=== PATIENT | male | born 1955 | race African-American/Black ===

== ENCOUNTER 2016-08-30 14:23 | Emergency (ER) | payer OTHER ==
--- NOTE | 2016-08-30 14:47 | ER Document Report ---
ED Medical Screen (RME) - General Stated Complaint: RIGHT KNEE PAIN, SWELLING Notes: 61 yo male with hx/o gout c/o right knee pain x 6 days. + redness, swelling, warmth. no relief with colchicine. no trauma. TRAVEL OUTSIDE OF THE [place] IN LAST 30 DAYS: No Physical Exam - Vital signs Vitals: Temp Pulse Resp BP Pulse Ox 98.5 F 85 16 165/66 H 98 08/30/16 14:31 08/30/16 14:31 08/30/16 14:31 08/30/16 14:31 08/30/16 14:31 Course - Vital Signs Vital signs: Temp Pulse Resp BP Pulse Ox 98.5 F 85 16 165/66 H 98 08/30/16 14:31 08/30/16 14:31 08/30/16 14:31 08/30/16 14:31 08/30/16 14:31
--- NOTE | 2016-08-30 16:09 | ER Document Report ---
HPI - HPI Patient complains to provider of: chronic right knee effusion, gout Onset: Other Onset/Duration: Persistent, Waxing and waning Pain Level: 4 Context: 61-year-old male with a history of chronic knee effusions and gout comes in today because his [id number] with the same thing has gotten steroid injections in his knee. No fever or myalgia's. 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 Associated Symptoms: None Exacerbated by: Other - kneeling Similar symptoms previously: Yes Recently seen / treated by doctor: No - ROS ROS below otherwise negative: Yes Systems Reviewed and Negative: Yes All other systems reviewed and negative - DERM Skin Color: Normal Past Medical History - General Information source: Patient - Social History Smoking Status: Current Every Day Smoker Chew tobacco use (# tins/day): Yes Frequency of alcohol use: None Drug Abuse: None Lives with: Spouse/Significant other Family History: Reviewed & Not Pertinent Patient has suicidal ideation: No Patient has homicidal ideation: No - Medical History Medical History: Negative Renal/ Medical History: Denies: Hx Peritoneal Dialysis Surgical Hx: Negative Vertical Provider Document - CONSTITUTIONAL Agree With Documented VS: Yes Exam Limitations: No Limitations - INFECTION CONTROL TRAVEL OUTSIDE OF THE [place] IN LAST 30 DAYS: No - HEENT HEENT: Normal ENT Exam, Normocephalic - NECK Neck: Supple - RESPIRATORY Respiratory: Breath Sounds Normal, No Respiratory Distress O2 Sat by Pulse Oximetry: 98 - CARDIOVASCULAR Cardiovascular: Regular Rate, Regular Rhythm - BACK Back: Normal Inspection - MUSCULOSKELETAL/EXTREMETIES Musculoskeletal/Extremeties: YUDELKA, FROM. negative: Tender Notes: warm but not red right knee effusion - NEURO Level of Consciousness: Awake, Alert Motor/Sensory: No Motor Deficit, No Sensory Deficit - DERM Integumentary: Warm, Dry Course - Vital Signs Vital signs: Temp Pulse Resp BP Pulse Ox 98.5 F 85 16 165/66 H 98 08/30/16 14:31 08/30/16 14:31 08/30/16 14:31 08/30/16 14:31 08/30/16 14:31 Discharge - Discharge Clinical Impression: chronic right knee effusion Condition: Stable Disposition: HOME, SELF-CARE Instructions: Use of Crutches ([facility]), Knee Effusion ([facility]), Arthritis ([facility]) Additional Instructions: see the orthopedic doctor for follow up take the prednisone instead of the colchicine to er if worse elevate Prescriptions: Hydrocodone Bit/Acetaminophen [Hydrocodon-Acetaminophen 5-325] 1 each PO Q4HP PRN #15 tablet PRN Reason: Prednisone [Deltasone 10 mg Tablet] 10 mg PO ASDIR PRN #21 tablet PRN Reason: Forms: Return to Work Referrals: MAEGAN PRADHAN MD [Primary Care Provider] - Follow up as needed DAVE BERRIOS MD [ACTIVE STAFF] - Follow up as needed
[2016-08-30 16:29] VITALS: BP 164/75
== END 2016-08-30 16:29 | disposition home or self-care (01) ==
LOC: ER 14:23
DX: M25.461 Effusion, right knee (principal); M10.9 Gout, unspecified; F17.210 Nicotine dependence, cigarettes, uncomplicated
CPT/HCPCS: 99283

== ENCOUNTER 2018-02-02 18:47 | Inpatient (IN) | payer SELFPAY ==
--- NOTE | 2018-02-02 19:14 | RADIOLOGY REPORT (SQ) ---
EXAM DESCRIPTION: CT HEAD WITHOUT COMPLETED DATE/TIME: 02/02/2018 7:00 pm REASON FOR STUDY: stroke symptoms COMPARISON: None. TECHNIQUE: Axial images acquired through the brain without intravenous contrast. Images reviewed wi th bone, brain and subdural windows. Images stored on PACS. All CT scanners at this facility use dose modulation, iterative reconstruction, and/or weight based d osing when appropriate to reduce radiation dose to as low as reasonably achievable (ALARA). [facility]: Dose Right [facility]: CareDose [facility]: Dose Right [facility]: Teradose 4D [facility]: Smart Moodsnap RADIATION DOSE: CT Rad equipment meets quality standard of care and radiation dose reduction techniq ues were employed. CTDIvol: 53.2 mGy. DLP: 991 mGy-cm. mGy. LIMITATIONS: None. FINDINGS: VENTRICLES: Normal size and contour. CEREBRUM: No mass effect. No hemorrhage. No midline shift. Normal hannon/white matter differentiatio n. No evidence for acute territorial infarction. CEREBELLUM: No mass effect. No hemorrhage. No alteration of density. No evidence for acute infarct ion. EXTRAAXIAL SPACES: No fluid collections. ORBITS AND GLOBE: Symmetrical contour of the globes. CALVARIUM: No depressed skull fracture. PARANASAL SINUSES: No air-fluid level. SOFT TISSUES: No hematoma. IMPRESSION: No acute intracranial hemorrhage or acute territorial infarct. EVIDENCE OF ACUTE STROKE: NO. COMMENT: Pertinent findings on the imaging study reported as a CRITICAL RESULT to Dr. Jackson at1 9:07 hrs on 02/02/2018. Category of Critical Result: Code Stroke Quality ID # [id number]: Final reports with documentation of one or more dose reduction techniques (e.g., Au tomated exposure control, adjustment of the mA and/or kV according to patient size, use of iterative reconstruction technique) TECHNICAL DOCUMENTATION: JOB ID: [id number] 2010 [employer]- All Rights Reserved Reading location - IP/workstation name: [email or web address]
[2018-02-02] MEDS ORDERED: ACETAMINOPHEN 325 MG TABLET PO ONE (19:18)
[2018-02-02] MEDS ORDERED: ACETAMINOPHEN 325 MG TABLET ONE (19:24)
[2018-02-02 19:27] LABS: HEMATOCRIT 40.2 % (37.9-51.0); HEMOGLOBIN 13.6 g/dL (13.5-17.0); MEAN CORPUSCULAR HEMOGLOBIN 29.7 pg (27.0-33.4); MEAN CORPUSCULAR HGB CONC 33.7 g/dL (32.0-36.0); MEAN CORPUSCULAR VOLUME 88 fl (80-97); PLATELET COUNT 284 10^3/uL (150-450); RED BLOOD COUNT 4.57 10^6/uL (4.35-5.55); WHITE BLOOD COUNT 8.9 10^3/uL (4.0-10.5)
--- NOTE | 2018-02-02 19:28 | RADIOLOGY REPORT (SQ) ---
EXAM DESCRIPTION: CHEST SINGLE VIEW COMPLETED DATE/TIME: 02/02/2018 7:13 pm REASON FOR STUDY: STROKE ALERT COMPARISON: None. EXAM PARAMETERS: NUMBER OF VIEWS: One view. TECHNIQUE: Single frontal radiographic view of the chest acquired. RADIATION DOSE: NA LIMITATIONS: None. FINDINGS: LUNGS AND PLEURA: No consolidation, pneumothorax or pleural effusion. MEDIASTINUM AND HILAR STRUCTURES: No masses. Contour normal. HEART AND VASCULAR STRUCTURES: Heart normal in size. Normal vasculature. BONES: No acute findings. HARDWARE: None in the chest. IMPRESSION: No acute radiographic finding in the chest. TECHNICAL DOCUMENTATION: JOB ID: [id number] 2010 [employer]- All Rights Reserved Reading location - IP/workstation name: [email or web address]
[2018-02-02 19:32] LABS: INTERNATIONAL RATION (INR) 0.86; PROTHROMBIN TIME 12.2 SEC (11.4-15.4)
[2018-02-02 19:46] LABS: ALANINE AMINOTRANSFERASE 208 U/L (21-72); ALBUMIN 4.1 g/dL (3.5-5.0); ALKALINE PHOSPHATASE 109 U/L (38-126); ANION GAP 13 (5-19); ASPARTATE AMINO TRANSFERASE 374 U/L (17-59); BILIRUBIN,DIRECT 0.5 mg/dL (0.0-0.4); BILIRUBIN,TOTAL 1.2 mg/dL (0.2-1.3); BLOOD UREA NITROGEN 15 mg/dL (7-20); CALCIUM 9.5 mg/dL (8.4-10.2); CARBON DIOXIDE 28 mmol/L (22-30); CHLORIDE 102 mmol/L (98-107); CREATINE KINASE 201 U/L (55-170); GLUCOSE 129 mg/dL (75-110); SODIUM 142.5 mmol/L (137-145); TOTAL PROTEIN 7.7 g/dL (6.3-8.2)
[2018-02-02 19:51] LABS: ABSOLUTE LYMPHOCYTES# (MANUAL) 0.6 10^3/uL (0.5-4.7); ABSOLUTE MONOCYTES # (MANUAL) 0.3 10^3/uL (0.1-1.4); BASOPHILS % (MANUAL) 0 % (0-2); EOSINOPHILS % (MANUAL) 0 % (0-6); LYMPHOCYTES % (MANUAL) 7 % (13-45); MONOCYTES % (MANUAL) 3 % (3-13); SEGMENTED NEUTROPHILS % (MAN) 75 % (42-78); TOTAL CELLS COUNTED 100
[2018-02-02 19:53] LABS: ANISOCYTOSIS SLIGHT; STOMATOCYTES 1+
[2018-02-02 19:54] LABS: PLATELET COMMENT ADEQUATE
[2018-02-02 19:57] LABS: CREATINE KINASE MB 0.8 ng/mL (<4.55); TROPONIN I 0.013 ng/mL
[2018-02-02 20:06] LABS: BAND NEUTROPHILS % (MANUAL) 15 % (3-5)
--- NOTE | 2018-02-02 20:31 | ER Document Report ---
ED General - General Chief Complaint: S/S of Possible Stroke Stated Complaint: STROKE LIKE SYMPTOMS Time Seen by Provider: 02/02/18 20:07 Cannot obtain history due to: Altered mental status Notes: Patient is a 62-year-old male with a past medical history of hypertension who presents with complaints of difficulty speaking. The patient himself struggles to provide meaningful history stating only that he was at home today repeatedly over and over again. His does show up later and state that the patient apparently was fishing today and when he got home she notes that he is speaking abnormally prompting her to call the ambulance to bring to the hospital. No additional history can be obtained. The patient was unaware that he had a fever today. TRAVEL OUTSIDE OF THE [place] IN LAST 30 DAYS: No - Related Data Allergies/Adverse Reactions: No Known Allergies Allergy (Verified 02/02/18 18:52) Past Medical History - General Information source: Patient, Relative - Social History Smoking Status: Never Smoker Frequency of alcohol use: None Drug Abuse: None Lives with: Family Family History: Reviewed & Not Pertinent Renal/ Medical History: Denies: Hx Peritoneal Dialysis Review of Systems - Review of Systems -: Yes ROS unobtainable due to patient's medical condition Physical Exam - Vital signs Vitals: Resp Pulse Ox 20 97 02/02/18 19:22 02/02/18 19:22 Interpretation: Tachycardic, Tachypneic, Febrile Notes: PHYSICAL EXAMINATION: GENERAL: Appears mildly unwell but in no acute distress HEAD: Atraumatic, normocephalic. EYES: Pupils equal round and reactive to light, extraocular movements intact, sclera anicteric, conjunctiva are normal. ENT: nares patent, oropharynx clear without exudates. Moderately dry mucous membranes. NECK: Normal range of motion, supple without lymphadenopathy LUNGS: Breath sounds clear to auscultation bilaterally and equal. No wheezes rales or rhonchi. HEART: Regular tachycardia without murmurs ABDOMEN: Soft, nontender, normoactive bowel sounds. No guarding, no rebound. No masses appreciated. EXTREMITIES: Normal range of motion, no pitting or edema. No cyanosis. NEUROLOGICAL: Face symmetric. Tongue protrudes midline. Extraocular motions intact. Pupils are 2 mm and equally reactive. Expressive aphasia, no receptive aphasia. No dysarthria. Normal gait. 5 out of 5 strength in both the distal and proximal upper and lower extremities bilaterally. Sensation is grossly intact throughout. Finger to nose testing normal. Pronator drift normal. PSYCH: Alert, oriented to person, not oriented to year, month or location SKIN: Warm, Dry, normal turgor, no rashes or lesions noted. Course - Re-evaluation Re-evalutation: 02/02/18 20:29 Patient presents with word finding difficulties and is profoundly confused. He does not have a dysarthria. His neurologic exam does not show any focal neurologic deficits. However he is unable to me the month, the year, or where we are. He seems to get frustrated with this word finding difficulty. Concerning for an expressive aphasia although a very atypical presentation as the patient also meet sepsis criteria at time of arrival he has a temperature of 101F reconfirmed on 2 separate readings, is tachycardic, and has a 15% bandemia. No obvious source of infection but would be a very atypical presentation for the patient to be both acutely infected and be developing an acute stroke. The patient is unable to tell me his last known time of well and there is no family members at the bedside. The triage nursing note seems to indicate that 3 PM was his last known well but the patient cannot confirm this to me. He can also not tell me what medications he is on and there are no medication list available. I do not believe proceeding with TPA at this time point would be appropriate given the picture is quite confusing does not appear entirely consistent with an acute CVA given the absence of any additional neurologic deficits and the patient's picture of fever, tachycardia, and bandemia. 02/02/18 20:37 Family is not the bedside, clarifies that the last known known well time was 7 AM. Apparently he was fishing all day and when he came home his noticed that his speech pattern was off and the people with whom he had been fishing stated that he had been speaking irregularly all day. Will begin empiric cefepime, IV fluids, awaiting urinalysis and several additional labs including lactate, venous blood gas. MRI of the head has been ordered. 02/02/18 22:32 Lumbar puncture attempted by both myself and Dr. Spivey a total of 3 times per each provider unsuccessful. Empiric coverage has already been started. Will obtain right upper quadrant ultrasound given LFT of normality's and then plan for hospitalization. 02/03/18 0100 Patient continues to be hemodynamically within acceptable limits. He has defervesced. He remains with a moderate expressive aphasia but continues to deny any additional complaints. I discussed this case with the accepting hospitalist who has agreed to admit the patient. - Vital Signs Vital signs: Temp Pulse Resp BP Pulse Ox 99.3 F 73 18 113/75 100 02/03/18 00:23 02/03/18 03:00 02/03/18 03:00 02/03/18 03:00 02/03/18 03:00 - Laboratory Result Diagrams: 02/03/18 03:06 02/03/18 03:06 Laboratory results interpreted by me: 02/02/18 02/02/18 02/02/18 19:13 19:13 20:21 RDW 15.0 H Band Neutrophils % 15 H Lymphocytes % (Manual) 7 L Glucose 129 H Direct Bilirubin 0.5 H AST 374 H ALT 208 H Ammonia Creatine Kinase 201 H Urine Protein 100 H Urine Urobilinogen 4.0 H 02/02/18 20:45 RDW Band Neutrophils % Lymphocytes % (Manual) Glucose Direct Bilirubin AST ALT Ammonia < 8.7 L Creatine Kinase Urine Protein Urine Urobilinogen - Diagnostic Test Radiology reviewed: Image reviewed, Reports reviewed Radiology results interpreted by me: 02/02/18 20:31 CT head: No acute intercranial bleed or mass Chest x-ray: No acute infiltrate or pneumothorax - EKG Interpretation by Me Additional EKG results interpreted by me: 02/03/18 00:02 Sinus tachycardia. Rate 103. No ST elevations or depressions. QTC is 471. Procedures - Lumbar Puncture Lumbar puncture Consent obtained: Yes Lumbar puncture pre-procedure: Sterile PPE donned, Betadine prep applied Patient position: Sitting Needle size: 22 Lumbar puncture location: L4-5 Anesthetic type: 1% Lidocaine mL's of anesthetic: 5 Amount/type of drainage: 0 Number of attempts: 6 Complications: No Notes: 02/03/18 00:01 Unable to obtain cerebral spinal fluid sample Critical Care Note - Critical Care Note Total time excluding time spent on procedures (mins): 38 Comments: Critical care time spent obtaining history from patient or surrogate, discussions with consultants, development of treatment plan with patient or surrogate, evaluation of patient's response to treatment, examination of patient , ordering and performing treatments and interventions, ordering and review of laboratory studies, re-evaluation of patient's condition, ordering and review of radiographic studies and review of old charts Discharge - Discharge Clinical Impression: Expressive aphasia Sepsis Qualifiers: Sepsis type: sepsis due to unspecified organism Qualified Code(s): A41.9 - Sepsis, unspecified organism Altered mental status Qualifiers: Altered mental status type: unspecified Qualified Code(s): R41.82 - Altered mental status, unspecified Condition: Fair Disposition: ADMITTED INPATIENT Admitting Provider: Hospitalist Unit Admitted: Telemetry
[2018-02-02] MEDS ORDERED: NORMAL SALINE 1000 ML 1,000 ML IV ONE (20:32)
[2018-02-02] MEDS ORDERED: CEFEPIME 2 GM/D5W RTU 2 GM/50 ML RTUPB IV ONE (20:32)
[2018-02-02 20:34] LABS: VENOUS BLOOD BASE EXCESS 4.7 mmol/L; VENOUS BLOOD HCO3 30.4 mmol/L (20-32); VENOUS BLOOD PCO2 48.8 mmHg (35-63); VENOUS BLOOD PH 7.41 (7.30-7.42)
[2018-02-02 21:00] LABS: APPEARANCE,URINE CLEAR; BILIRUBIN,URINE NEGATIVE (NEGATIVE); COLOR,URINE YELLOW; GLUCOSE, URINE NEGATIVE (NEGATIVE); KETONES,URINE NEGATIVE (NEGATIVE); LEUKOCYTE ESTERASE,URINE NEGATIVE (NEGATIVE); NITRITE,URINE NEGATIVE (NEGATIVE); PROTEIN,URINE 100 mg/dL (NEGATIVE); URINE SPECIFIC GRAVITY 1.017
[2018-02-02] MEDS ORDERED: LIDOCAINE 1% INJ-PF (10 MG/ML) 30 ML SDV INJ ONE (21:02)
[2018-02-02] MEDS ORDERED: MIDAZOLAM 2 MG/2 ML INJ IV ONE (21:05)
[2018-02-02 21:32] LABS: ALCOHOL < 10 mg/dL (NONE DETECTED)
--- NOTE | 2018-02-02 22:13 | EKG REPORT ---
SEVERITY:- ABNORMAL ECG - SINUS TACHYCARDIA LEFT AXIS DEVIATION LEFT VENTRICULAR HYPERTROPHY : Confirmed by: Mandi Orta 02-Feb-2018 22:11:50
[2018-02-02] MEDS ORDERED: ACYCLOVIR SODIUM INJ/PF 500 MG/10 ML SDV IV ONE (22:32)
[2018-02-03] MEDS ORDERED: VANCOMYCIN HCL INJ 1000 MG VIAL IV ONE
--- NOTE | 2018-02-03 00:24 | RADIOLOGY REPORT (SQ) ---
Ultrasound right upper quadrant on 02/02/2018 at 11:38 PM CLINICAL INDICATION: Abnormal LFTs COMPARISON: None FINDINGS: Multiple sonographic images are obtained throughout the right upper quadrant, both transverse and sagittal images are obtained. Visualized aorta is unremarkable without evidence of an aneurysm. Visualized pancreas is unremarkable. There is mild increased echogenicity in the liver suggesting mild fatty infiltration. No focal liver lesion is noted. Visualized hepatic vasculature is patent and with a normal directional flow. Right kidney shows no hydronephrosis. No free fluid is noted in the right upper quadrant. There are no gallstones, gallbladder wall thickening or pericholecystic fluid. The common duct measures 5 mm which is within normal limits mitigating against obstruction of the biliary tree. IMPRESSION: Mild fatty infiltration of the liver, otherwise unremarkable.
[2018-02-03] MEDS ORDERED: MAG HYDROX/AL HYDROX/SIMETH SUSP 30 ML UDCUP PO PRN (02:06)
[2018-02-03] MEDS ORDERED: PROMETHAZINE HCL 25 MG SUPP.RECT PR PRN (02:06)
[2018-02-03] MEDS ORDERED: VANCOMYCIN HCL 0 MG in DEXTROSE 5%-WATER 250 ML IV NR (02:30)
[2018-02-03 03:15] LABS: ABSOLUTE LYMPHOCYTES (AUTO) 0.4 10^3/uL (0.5-4.7); ABSOLUTE MONOCYTES (AUTO) 0.7 10^3/uL (0.1-1.4); BASOPHILS % (AUTO) 0.2 % (0-2); EOSINOPHILS % (AUTO) 0.5 % (0-6); HEMATOCRIT 37.8 % (37.9-51.0); HEMOGLOBIN 12.9 g/dL (13.5-17.0); LYMPHOCYTES % (AUTO) 5.5 % (13-45); MEAN CORPUSCULAR HEMOGLOBIN 30.1 pg (27.0-33.4); MEAN CORPUSCULAR HGB CONC 34.1 g/dL (32.0-36.0); MEAN CORPUSCULAR VOLUME 88 fl (80-97); MONOCYTES % (AUTO) 8.4 % (3-13); PLATELET COUNT 258 10^3/uL (150-450); RED BLOOD COUNT 4.28 10^6/uL (4.35-5.55); RED CELL DISTRIBUTION WIDTH 15.2 % (11.5-14.0); SEGMENTED NEUTROPHILS % (AUTO) 85.4 % (42-78); TOTAL CELLS COUNTED % (AUTO) 100 %; WHITE BLOOD COUNT 8.2 10^3/uL (4.0-10.5)
[2018-02-03 03:32] LABS: ALANINE AMINOTRANSFERASE 304 U/L (21-72); ALBUMIN 3.7 g/dL (3.5-5.0); ALKALINE PHOSPHATASE 88 U/L (38-126); ANION GAP 14 (5-19); ASPARTATE AMINO TRANSFERASE 422 U/L (17-59); BILIRUBIN,DIRECT 0.7 mg/dL (0.0-0.4); BILIRUBIN,TOTAL 1.8 mg/dL (0.2-1.3); BLOOD UREA NITROGEN 13 mg/dL (7-20); CALCIUM 8.9 mg/dL (8.4-10.2); CARBON DIOXIDE 25 mmol/L (22-30); CHLORIDE 104 mmol/L (98-107); CHOLESTEROL 136.72 mg/dL (0-200); CREATINE KINASE 186 U/L (55-170); GLUCOSE 178 mg/dL (75-110); LIPASE 67.1 U/L (23-300); POTASSIUM 4.2 mmol/L (3.6-5.0); SODIUM 142.6 mmol/L (137-145); TOTAL PROTEIN 6.9 g/dL (6.3-8.2); TRIGLYCERIDES 105 mg/dL (<150)
[2018-02-03 03:43] LABS: DIRECT LDL 64 mg/dL (<100)
[2018-02-03] MEDS ORDERED: HYDRALAZINE HCL INJ/PF 20 MG/1 ML SDV IV ONE ×2 (05:21→19:30)
--- NOTE | 2018-02-03 05:26 | PDOC H&P ---
History of Present Illness Admission Date/PCP: 02/03/18 02:14 MAEGAN PRADHAN MD Patient complains of: Difficulty talking History of Present Illness: MARK ZUNIGA is a 62 year old male past medical history of hypertension. Presents to the emergency department complaining of difficulty speaking. Very difficult to obtain history from him. I got the information from the ED attending notes and discussion with him and partially from the patient. She was finishing during the morning and when he got home he was not spitting up normally prompting her to call the ambulance to bring him to the hospital. The emergency department the patient clearly expressive aphasia, no other neurological findings. Patient denies fever, chills, sore throat, shortness of breath, wheezing, chest pain, abdominal pain, diarrhea, dysuria, hematuria or frequency, headaches, weakness of any extremity, numbness in any extremity or tingling, vision changes. Extensive workup in the emergency department negative. Laboratories remarkable for isolated bandemia and transaminitis. Right Upper quadrant ultrasound negative. Lumbar puncture was attempted but failed in the ED. Patient was initiated on IV Acyclovir, cefepime and vancomycin. CT head negative. Chest x-ray and urinalysis negative. Past Medical History Cardiac Medical History: Reports: Hypertension Past Surgical History Past Surgical History: Reports: None Social History Information Source: Patient Lives with: Family Smoking Status: Never Smoker Frequency of Alcohol Use: Occasional Last Alcohol Use: 02/02/18 - 1 beer Drugs: None Family History Family History: Reviewed & Not Pertinent Parental Family History Reviewed: Yes - Mother at 80 yo, father at 80 yo both of old age. No medical pro Children Family History Reviewed: NA Sibling(s) Family History Reviewed.: NA Medication/Allergy Home Medications: Hydrocodone Bit/Acetaminophen [Hydrocodon-Acetaminophen 5-325] 1 each PO Q4HP PRN #15 tablet 08/30/16 Prednisone [Deltasone 10 mg Tablet] 10 mg PO ASDIR PRN #21 tablet 08/30/16 Allergies/Adverse Reactions: No Known Allergies Allergy (Verified 02/02/18 18:52) Review of Systems Review of Systems: As outlined in the HPI, all others negative Physical Exam Vital Signs: Temp Pulse Resp BP Pulse Ox 98.9 F 73 25 H 177/79 H 95 02/03/18 05:08 02/03/18 03:00 02/03/18 04:36 02/03/18 04:36 02/03/18 04:00 Intake & Output 02/01/18 02/02/18 02/03/18 06:59 06:59 06:59 Output Total 500 Balance -500 Additional comments: General appearance: Well-developed, well-nourished, alert and cooperative, and appears to be in no acute distress Head: Normocephalic Eyes: PEERL, EOMI, vision is grossly intact. Ears: External auditory canal and tympanic membranes clear, hearing grossly intact. Nose: No nasal discharge. Throat: Oral cavity and pharynx normal. No inflammation, swelling, exudate or lesions. Neck: Neck supple, nontender without lymphadenopathy, masses or thyromegaly. Cardiac: Normal S1 and S2. No S3, S4 or murmurs. Rhythm is regular. There is no peripheral edema, cyanosis or pallor. Extremities are warm and well perfused. Capillary refill is less than 2 seconds. No carotid bruits. Lungs: Clear to auscultation and percussion without rales, rhonchi, wheezing or diminished breath sounds. Not using accessory muscles. Abdomen: Positive bowel sounds. Soft. Nondistended, nontender. No guarding or rebound. No masses. No hepatosplenomegaly Extremities: No significant deformity or joint abnormality. No edema. Peripheral pulses intact. No varicosities. Neurological: Cranial nerves II through XII grossly intact. Strength and sensation symmetric and intact throughout. Reflexes 2+ throughout. Positive for expressive aphasia. Skin: Skin normal color, texture and turgor with no lesions or eruptions, warm and dry. Psychiatric: The mental examination revealed the patient was oriented to person , place, and time. The patient was able to demonstrate good judgment on recent , without hallucinations, abnormal affect or abnormal behaviors. Results Laboratory Results: 02/03/18 03:06 02/03/18 03:06 02/03/18 02/03/18 03:06 03:06 WBC 8.2 RBC 4.28 L Hgb 12.9 L Hct 37.8 L MCV 88 MCH 30.1 MCHC 34.1 RDW 15.2 H Plt Count 258 Seg Neutrophils % 85.4 H Lymphocytes % 5.5 L Monocytes % 8.4 Eosinophils % 0.5 Basophils % 0.2 Absolute Neutrophils 7.0 Absolute Lymphocytes 0.4 L Absolute Monocytes 0.7 Absolute Eosinophils 0.0 Absolute Basophils 0.0 Sodium 142.6 Potassium 4.2 Chloride 104 Carbon Dioxide 25 Anion Gap 14 BUN 13 Creatinine 0.79 Est GFR ( Amer) > 60 Est GFR (Non-Af Amer) > 60 Glucose 178 H Calcium 8.9 Magnesium 2.0 Total Bilirubin 1.8 H AST 422 H ALT 304 H Alkaline Phosphatase 88 Total Protein 6.9 Albumin 3.7 Triglycerides 105 Cholesterol 136.72 LDL Cholesterol Direct 64 VLDL Cholesterol 21.0 HDL Cholesterol 49 Lipase 67.1 02/03/18 02/03/18 03:06 03:06 Creatine Kinase 186 H Troponin I 0.012 Impressions: Head CT 02/02/18 00:00 IMPRESSION: No acute intracranial hemorrhage or acute territorial infarct. EVIDENCE OF ACUTE STROKE: NO. Chest X-Ray 02/02/18 18:52 IMPRESSION: No acute radiographic finding in the chest. Abdomen Ultrasound 02/02/18 21:01 IMPRESSION: Mild fatty infiltration of the liver, otherwise unremarkable. Assessment & Plan - Diagnosis (1) Expressive aphasia Is this a current diagnosis for this admission?: Yes Plan: Patient comes with expressive aphasia that has been going on all day, and has been worsening over time. Have to rule out acute stroke so will place an order for an MRI of the brain. It can be also secondary to infection as the patient has bandemia with normal white count. NeuroChecks every [address] head negative. Swallow Evaluation ordered. He mentioned that he started a sleeping pill the night before. will bring it today (2) Bandemia without diagnosis of specific infection Is this a current diagnosis for this admission?: Yes Plan: White blood cells 8.9 with 15% bands. Extensive workup in the ED has been negative. Urinalysis negative, chest x-ray negative, the physical exam with no signs of infection. The patient has no complaint of headache does not have any signs or symptoms of meningitis, however at this point I will place the order for a lumbar puncture to be done by IR. I will continue with IV as Cyclovir, vancomycin and cefepime. Please follow blood cultures and urine cultures. (3) Transaminitis Is this a current diagnosis for this admission?: Yes Plan: ALT 374, AST 208, the repeated one at 3 AM showed higher numbers. Patient is asymptomatic. Right upper quadrant ultrasound with mild fatty liver. Tylenol and acetaminophen serum levels. If transaminitis keeps worsening further workup is warranted.
[2018-02-03] MEDS ORDERED: HYDRALAZINE HCL INJ/PF 20 MG/1 ML SDV IV PRN (05:27)
[2018-02-03] MEDS: HEPARIN SOD (PORCINE) 5,000 UNIT/ML 1 ML SYRINGE SUBCUT SCH ×2 (05:31→15:32)
[2018-02-03] MEDS ORDERED: ACYCLOVIR SODIUM INJ/PF 500 MG/10 ML SDV IV ONE (05:39)
[2018-02-03] MEDS ORDERED: ACYCLOVIR SODIUM 500 MG in NORMAL SALINE 100 ML IV SCH (06:00)
[2018-02-03] MEDS ORDERED: METOPROLOL TARTRATE PF/INJ 5 MG/5 ML SDV IV ONE (06:49)
--- NOTE | 2018-02-03 11:31 | RADIOLOGY REPORT (SQ) ---
EXAM DESCRIPTION: ORBITS 4 COMPLETED DATE/TIME: 02/03/2018 11:20 am REASON FOR STUDY: SCREENING FOR MRI METAL CHECK COMPARISON: None. NUMBER OF VIEWS: Two views. TECHNIQUE: Images of the facial bones acquired. LIMITATIONS: None. FINDINGS: ORBITS: No fracture. No foreign body. SINUSES: No mucosal thickening. No air fluid levels. FACIAL BONES: No fracture. OTHER: No other significant finding. IMPRESSION: NO FOREIGN BODY OR FRACTURE OF THE FACIAL BONES. TECHNICAL DOCUMENTATION: JOB ID: [id number] 2010 [employer]- All Rights Reserved Reading location - IP/workstation name: [email or web address]
--- NOTE | 2018-02-03 12:30 | RADIOLOGY REPORT (SQ) ---
EXAM DESCRIPTION: MRI HEAD WITHOUT COMPLETED DATE/TIME: 02/03/2018 12:11 pm REASON FOR STUDY: eval acute stroke COMPARISON: 02/02/2018 TECHNIQUE: Multiplanar imaging includes non-contrasted T1, T2, FLAIR, and diffusion with ADC map seq uences. Images stored on PACS. LIMITATIONS: None. FINDINGS: ANATOMY: No anomalies. Normal vascular flow voids. Pituitary fossa normal. CSF SPACES: Atrophy induced prominence of ventricles and CSF spaces. CEREBRUM: There is subtle foci of increased T1 signal in the regions of the anterior right parietal lobe and posterior left parietal lobe with some associated susceptibility on T2* imaging. This incre ased T1 signal is within the cerebral cortex to may represent early intraparenchymal hemorrhage versu s changes from acute infarction. High signal intensity lesions scattered throughout the white matter on FLAIR imaging with distribution suggesting micro-vascular ischemic changes. No evidence of hemor rhage, mass, or extraaxial fluid collection. POSTERIOR FOSSA: No signal alteration. No hemorrhage. No edema, masses or mass effect. Internal quiana tory canals, cerebello-pontine angles, mastoids normal. DIFFUSION IMAGING: There is restricted diffusion present within the right insula and right temporal a reas. There is also patchy restricted diffusion in the right anterior parietal lobe. There is a sma ll focus of restricted diffusion in the posterior aspect of the left parietal lobe as well. ORBITS: No masses. Globes normal. PARANASAL SINUSES: No fluid levels. Mucosa normal. OTHER: No other significant finding. IMPRESSION: Acute infarction in the right insula, right temporal lobe, right parietal lobe, as well as the left parietal lobe as described. Subtle increased T1 signal in the right parietal lobe and le ft parietal lobe along the cortex may indicate early parenchymal hemorrhage. No subdural or subarach noid hemorrhage appreciated at this time. Given the distribution of these infarcts, recommend correl ation with any possible embolic or central source. EVIDENCE OF ACUTE STROKE: Yes COMMENT: Pertinent findings on the imaging study reported as a CRITICAL RESULT to Dr. Townsend At 12:08 on 02/03/2018. Category of Critical Result: 1 TECHNICAL DOCUMENTATION: JOB ID: [id number]- All Rights Reserved Reading location - IP/workstation name: [email or web address]
[2018-02-03] MEDS ORDERED: VANCOMYCIN HCL 1,250 MG in DEXTROSE 5%-WATER 250 ML IV SCH (14:00)
[2018-02-03] MEDS ORDERED: METOPROLOL TARTRATE 50 MG TABLET PO ONE (17:30)
[2018-02-03] MEDS ORDERED: HYDRALAZINE HCL 25 MG TABLET PO ONE (20:45)
[2018-02-03] MEDS: ATORVASTATIN CALCIUM 80 MG TABLET PO SCH (21:56)
[2018-02-03] MEDS ORDERED: ACETAMINOPHEN 325 MG TABLET ONE (23:25)
--- NOTE | 2018-02-04 00:40 | RADIOLOGY REPORT (SQ) ---
EXAM DESCRIPTION: CT HEAD WITHOUT IV CONTRAST COMPLETED DATE/TME: 02/04/2018 00:00 CLINICAL HISTORY: 62 years, Male, r/o IC bleeding COMPARISON: MRI dated 02/03/2018 TECHNIQUE: Axial CT images of the brain were obtained without contrast. Sagittal and coronal reformats were performed. DLP 990 Images stored on PACS. All CT scanners at this facility use dose modulation, iterative reconstruction, and/or weight based dosing when appropriate to reduce radiation dose to as low as reasonably achievable (ALARA). [facility]: Dose Right [facility]: CareDose [facility]: Dose Right [facility]: Teradose 4D [facility]: Smart Technologies LIMITATIONS: None. FINDINGS: Again noted are acute infarcts involving the right insula, right temporal lobe, right parietal lobe, and left parietal lobe. No evidence of hemorrhagic conversion. There is no midline shift, herniation, hydrocephalus, or extra-axial fluid collection. The paranasal sinuses and mastoid air cells are clear. There is no acute fracture IMPRESSION: No evidence of hemorrhagic conversion of the acute infarcts TECHNICAL DOCUMENTATION: Quality ID # 436: Final reports with documentation of one or more dose reduction techniques (e.g., Automated exposure control, adjustment of the mA and/or kV according to patient size, use of iterative reconstruction technique) 2010 [employer]- All Rights Reserved
[2018-02-04 05:07] LABS: ABSOLUTE EOSINOPHILS # (AUTO) 0.1 10^3/uL (0.0-0.6); ABSOLUTE LYMPHOCYTES (AUTO) 0.6 10^3/uL (0.5-4.7); ABSOLUTE MONOCYTES (AUTO) 0.4 10^3/uL (0.1-1.4); BASOPHILS % (AUTO) 0.1 % (0-2); EOSINOPHILS % (AUTO) 1.7 % (0-6); HEMATOCRIT 39.9 % (37.9-51.0); HEMOGLOBIN 13.5 g/dL (13.5-17.0); LYMPHOCYTES % (AUTO) 9.9 % (13-45); MEAN CORPUSCULAR HEMOGLOBIN 29.7 pg (27.0-33.4); MEAN CORPUSCULAR HGB CONC 33.8 g/dL (32.0-36.0); MEAN CORPUSCULAR VOLUME 88 fl (80-97); MONOCYTES % (AUTO) 6.8 % (3-13); PLATELET COUNT 268 10^3/uL (150-450); RED BLOOD COUNT 4.54 10^6/uL (4.35-5.55); RED CELL DISTRIBUTION WIDTH 15.3 % (11.5-14.0); SEGMENTED NEUTROPHILS % (AUTO) 81.5 % (42-78); TOTAL CELLS COUNTED % (AUTO) 100 %; WHITE BLOOD COUNT 6.2 10^3/uL (4.0-10.5)
[2018-02-04 05:34] LABS: ALANINE AMINOTRANSFERASE 361 U/L (21-72); ALBUMIN 3.7 g/dL (3.5-5.0); ALKALINE PHOSPHATASE 129 U/L (38-126); ANION GAP 15 (5-19); ASPARTATE AMINO TRANSFERASE 265 U/L (17-59); BILIRUBIN,DIRECT 1.6 mg/dL (0.0-0.4); BILIRUBIN,TOTAL 2.8 mg/dL (0.2-1.3); BLOOD UREA NITROGEN 13 mg/dL (7-20); CARBON DIOXIDE 22 mmol/L (22-30); CHLORIDE 102 mmol/L (98-107); GLUCOSE 122 mg/dL (75-110); POTASSIUM 3.7 mmol/L (3.6-5.0); TOTAL PROTEIN 6.7 g/dL (6.3-8.2)
[2018-02-04] MEDS: METOPROLOL TARTRATE 50 MG TABLET PO SCH ×2 (10:26→17:32)
[2018-02-04] MEDS: ACETAMINOPHEN 325 MG TABLET PO PRN (10:28)
--- NOTE | 2018-02-04 14:57 | PDOC PROGRESS REPORT ---
Subjective Progress Note for:: 02/04/18 Subjective:: This is a 62 years old black male patient with past medical history significant for hypertension which is untreated due to medical noncompliance, he presents with chief complaint of speaking difficulty. Patient has obviously expressive aphasia. The possibility of meningitis considered LP attempted but failed. And patient empirically started on cefepime, vancomycin and acyclovir. CT scan of the head is negative but his MRI shows acute infarction involving the right insula, right temporal lobe, right parietal lobe as well as the left parietal lobe. So his expressive aphasia is explained by these multiple strokes. Patient does not have any history of A. fib and his EKG is also normal. On the radiology report the radiologist mentioned there is there is signs of early parenchymal hemorrhage right parietal lobe and left parietal lobe cortex. For this reason aspirin or Plavix is not started. Patient is also off Lovenox and started on mechanical sequential compression device. Reason For Visit: EXPRESSIVE APHASIA Physical Exam Vital Signs: Temp Pulse Resp BP Pulse Ox 99.9 F 81 18 177/77 H 97 02/04/18 11:14 02/04/18 12:00 02/04/18 12:00 02/04/18 12:00 02/04/18 12:00 Intake & Output 02/03/18 02/04/18 02/05/18 06:59 06:59 06:59 Intake Total 723 Output Total 500 225 Balance -500 498 Weight 93.7 kg Results Laboratory Results: 02/04/18 04:29 02/04/18 02/04/18 04:29 04:29 WBC 6.2 RBC 4.54 Hgb 13.5 Hct 39.9 MCV 88 MCH 29.7 MCHC 33.8 RDW 15.3 H Plt Count 268 Seg Neutrophils % 81.5 H Lymphocytes % 9.9 L Monocytes % 6.8 Eosinophils % 1.7 Basophils % 0.1 Absolute Neutrophils 5.0 Absolute Lymphocytes 0.6 Absolute Monocytes 0.4 Absolute Eosinophils 0.1 Absolute Basophils 0.0 Sodium 139.0 Potassium 3.7 Chloride 102 Carbon Dioxide 22 Anion Gap 15 BUN 13 Creatinine 0.73 Est GFR ( Amer) > 60 Est GFR (Non-Af Amer) > 60 Glucose 122 H Calcium 9.0 Total Bilirubin 2.8 H AST 265 H ALT 361 H Alkaline Phosphatase 129 H Total Protein 6.7 Albumin 3.7 02/03/18 02/03/18 03:06 03:06 Creatine Kinase 186 H Troponin I 0.012 Impressions: Chest X-Ray 02/02/18 18:52 IMPRESSION: No acute radiographic finding in the chest. Head MRI 02/02/18 20:37 IMPRESSION: Acute infarction in the right insula, right temporal lobe, right parietal lobe, as well as the left parietal lobe as described. Subtle increased T1 signal in the right parietal lobe and left parietal lobe along the cortex may indicate early parenchymal hemorrhage. No subdural or subarachnoid hemorrhage appreciated at this time. Given the distribution of these infarcts, recommend correlation with any possible embolic or central source. EVIDENCE OF ACUTE STROKE: Yes Abdomen Ultrasound 02/02/18 21:01 IMPRESSION: Mild fatty infiltration of the liver, otherwise unremarkable. Orbit X-Ray 02/03/18 11:03 IMPRESSION: NO FOREIGN BODY OR FRACTURE OF THE FACIAL BONES. Head CT 02/04/18 00:00 IMPRESSION: No evidence of hemorrhagic conversion of the acute infarcts TECHNICAL DOCUMENTATION: Quality ID # 436: Final reports with documentation of one or more dose reduction techniques (e.g., Automated exposure control, adjustment of the mA and/or kV according to patient size, use of iterative reconstruction technique) 2010 [employer]- All Rights Reserved Assessment & Plan - Diagnosis (1) Expressive aphasia Is this a current diagnosis for this admission?: Yes Plan: Due to #2 (2) Acute ischemic stroke and hemorrhagic Is this a current diagnosis for this admission?: Yes Plan: His MRI shows ischemic stroke involving the right insula, the right temporal, parietal lobes, as well as the left parietal lobe. There is subtle increased T1 signal in the right parietal lobe and left parietal lobe along the cortex may indicate early parenchymal hemorrhage. For the above-mentioned reason antiplatelets has not been started. Patient has been started on high intensity Lipitor. (3) Uncontrolled hypertension Is this a current diagnosis for this admission?: Yes Plan: We will keep his blood pressure below 130. - Time Time Spent with patient: 25-34 minutes
[2018-02-04 15:17] LABS: VANCOMYCIN,TROUGH < 5.0 ug/mL (5.0-20.0)
[2018-02-04 16:41] LABS: PATH REVIEW PATHOLOGIST REVIEWED
[2018-02-04] MEDS: ATORVASTATIN CALCIUM 80 MG TABLET PO SCH (23:01)
[2018-02-05 05:40] LABS: HEPATITIS A AB IGM Negative (Negative); HEPATITIS B CORE AB IGM Negative (Negative); HEPATITS B SURFACE ANTIGEN Negative (Negative)
[2018-02-05] MEDS: METOPROLOL TARTRATE 50 MG TABLET PO SCH ×2 (07:32→17:57)
[2018-02-05] MEDS: ACETAMINOPHEN 325 MG TABLET PO PRN ×2 (07:33→16:22)
[2018-02-05 09:07] LABS: HEPATITIS C VIRUS ANTIBODY <0.1 s/co ratio (0.0-0.9)
--- NOTE | 2018-02-05 14:04 | PDOC PROGRESS REPORT ---
Subjective Progress Note for:: 02/05/18 Subjective:: I seen patient resting in bed. He is awake alert but it is difficult to assess his orientation because of his expressive aphasia. His vital signs are relatively stable. Patient still waiting for echo and carotid Doppler. Reason For Visit: EXPRESSIVE APHASIA Physical Exam Vital Signs: Temp Pulse Resp BP Pulse Ox 97.8 F 59 L 16 155/72 H 99 02/05/18 11:01 02/05/18 12:00 02/05/18 12:00 02/05/18 12:00 02/05/18 12:00 Intake & Output 02/04/18 02/05/18 02/06/18 06:59 06:59 06:59 Intake Total 723 991 655 Output Total 225 575 Balance 498 416 655 Weight 93.7 kg 92.6 kg General appearance: PRESENT: no acute distress, well-developed, well-nourished Head exam: PRESENT: atraumatic, normocephalic Eye exam: PRESENT: conjunctiva pink, EOMI, PERRLA. ABSENT: scleral icterus Ear exam: PRESENT: normal external ear exam Mouth exam: PRESENT: moist, tongue midline Neck exam: ABSENT: carotid bruit, JVD, lymphadenopathy, thyromegaly Respiratory exam: PRESENT: clear to auscultation heather. ABSENT: rales, rhonchi, wheezes Cardiovascular exam: PRESENT: RRR. ABSENT: diastolic murmur, rubs, systolic murmur Pulses: PRESENT: normal dorsalis pedis pul Vascular exam: PRESENT: normal capillary refill GI/Abdominal exam: PRESENT: normal bowel sounds, soft. ABSENT: distended, guarding, mass, organolmegaly, rebound, tenderness Rectal exam: PRESENT: deferred Extremities exam: PRESENT: full ROM. ABSENT: calf tenderness, clubbing, pedal edema Neurological exam: PRESENT: alert, awake, oriented to person, oriented to place , oriented to time, oriented to situation. ABSENT: motor sensory deficit Psychiatric exam: PRESENT: appropriate affect, normal mood. ABSENT: homicidal ideation, suicidal ideation Skin exam: PRESENT: dry, intact, warm. ABSENT: cyanosis, rash Results Laboratory Results: 02/04/18 04:29 02/04/18 13:40 02/04/18 13:40 Creatinine 0.75 Est GFR ( Amer) > 60 Est GFR (Non-Af Amer) > 60 02/03/18 02/03/18 03:06 03:06 Creatine Kinase 186 H Troponin I 0.012 Impressions: Chest X-Ray 02/02/18 18:52 IMPRESSION: No acute radiographic finding in the chest. Head MRI 02/02/18 20:37 IMPRESSION: Acute infarction in the right insula, right temporal lobe, right parietal lobe, as well as the left parietal lobe as described. Subtle increased T1 signal in the right parietal lobe and left parietal lobe along the cortex may indicate early parenchymal hemorrhage. No subdural or subarachnoid hemorrhage appreciated at this time. Given the distribution of these infarcts, recommend correlation with any possible embolic or central source. EVIDENCE OF ACUTE STROKE: Yes Abdomen Ultrasound 02/02/18 21:01 IMPRESSION: Mild fatty infiltration of the liver, otherwise unremarkable. Orbit X-Ray 02/03/18 11:03 IMPRESSION: NO FOREIGN BODY OR FRACTURE OF THE FACIAL BONES. Head CT 02/04/18 00:00 IMPRESSION: No evidence of hemorrhagic conversion of the acute infarcts TECHNICAL DOCUMENTATION: Quality ID # 436: Final reports with documentation of one or more dose reduction techniques (e.g., Automated exposure control, adjustment of the mA and/or kV according to patient size, use of iterative reconstruction technique) 2010 [employer]- All Rights Reserved Assessment & Plan - Diagnosis (1) Expressive aphasia Is this a current diagnosis for this admission?: Yes Plan: Due to #2 (2) Acute ischemic stroke and hemorrhagic Is this a current diagnosis for this admission?: Yes Plan: His MRI shows ischemic stroke involving the right insula, the right temporal, parietal lobes, as well as the left parietal lobe. There is subtle increased T1 signal in the right parietal lobe and left parietal lobe along the cortex may indicate early parenchymal hemorrhage. For the above-mentioned reason antiplatelets has not been started. Patient has been started on high intensity Lipitor. (3) Uncontrolled hypertension Is this a current diagnosis for this admission?: Yes Plan: Improving
[2018-02-05] MEDS: ATORVASTATIN CALCIUM 80 MG TABLET PO SCH (21:18)
[2018-02-06] MEDS: METOPROLOL TARTRATE 50 MG TABLET PO SCH ×2 (08:33→17:44)
--- NOTE | 2018-02-06 12:14 | RADIOLOGY REPORT (SQ) ---
EXAM DESCRIPTION: CAROTID DOPPLER COMPLETED DATE/TIME: 02/06/2018 12:05 pm REASON FOR STUDY: stroke COMPARISON: None. TECHNIQUE: Grayscale ultrasound, Doppler velocity and spectra, and color Doppler images acquired of the extra-cranial carotid and vertebral arteries. Images stored on PACS. LIMITATIONS: None. FINDINGS: RIGHT CAROTID CCA Velocities: Within normal limits. ICA Velocities Peak systolic 0.65 m/s. End diastolic 0.24 m/s. Proximal ICA/CCA peak systolic ratio 1.2. Spectra normal. No significant plaque. LEFT CAROTID CCA Velocities: Within normal limits. ICA Velocities Peak systolic 0.73 m/s. End diastolic 0.25 m/s. Proximal ICA/CCA peak systolic ratio 1.1. Spectra normal. No significant plaque. VERTEBRAL ARTERIES: Antegrade flow. Normal waveforms. SUBCLAVIAN ARTERIES: No finding. OTHER: No other significant finding. IMPRESSION: NO HEMODYNAMICALLY SIGNIFICANT STENOSIS. COMMENT: Quality ID #195: Velocity criteria are extrapolated from the diameter data as defined by t he Society of Radiologists in Ultrasound Consensus Conference. Radiology 2003: 229; 340-346. TECHNICAL DOCUMENTATION: JOB ID: [id number] [employer]- All Rights Reserved Reading location - IP/workstation name: [facility]
--- NOTE | 2018-02-06 18:20 | PDOC PROGRESS REPORT ---
Subjective Progress Note for:: 02/06/18 Subjective:: This is 62 years old black male patient admitted for expressive aphasia secondary to acute ischemic stroke early signs of hemorrhage. Patient is stable with regard to his vital signs. He does not have weakness or neurologic deficits. His expressive aphasia is improving patient able to say his name. His carotid Doppler reported as no hemodynamically significant carotid stenosis. His echo result is pending. Reason For Visit: EXPRESSIVE APHASIA Physical Exam Vital Signs: Temp Pulse Resp BP Pulse Ox 98.9 F 68 15 167/71 H 99 02/06/18 15:14 02/06/18 15:14 02/06/18 15:14 02/06/18 15:14 02/06/18 15:14 Intake & Output 02/05/18 02/06/18 02/07/18 06:59 06:59 06:59 Intake Total 991 1500 237 Output Total 575 790 100 Balance 416 710 137 Weight 92.6 kg 91.4 kg General appearance: PRESENT: no acute distress Head exam: PRESENT: atraumatic Eye exam: PRESENT: conjunctiva pink Mouth exam: PRESENT: moist Neck exam: ABSENT: carotid bruit, JVD, lymphadenopathy, thyromegaly Respiratory exam: PRESENT: clear to auscultation heather. ABSENT: rales, rhonchi, wheezes Cardiovascular exam: PRESENT: RRR. ABSENT: diastolic murmur, rubs, systolic murmur Neurological exam: PRESENT: alert, awake Results Laboratory Results: 02/04/18 04:29 02/04/18 13:40 02/03/18 02/03/18 03:06 03:06 Creatine Kinase 186 H Troponin I 0.012 Impressions: Chest X-Ray 02/02/18 18:52 IMPRESSION: No acute radiographic finding in the chest. Head MRI 02/02/18 20:37 IMPRESSION: Acute infarction in the right insula, right temporal lobe, right parietal lobe, as well as the left parietal lobe as described. Subtle increased T1 signal in the right parietal lobe and left parietal lobe along the cortex may indicate early parenchymal hemorrhage. No subdural or subarachnoid hemorrhage appreciated at this time. Given the distribution of these infarcts, recommend correlation with any possible embolic or central source. EVIDENCE OF ACUTE STROKE: Yes Abdomen Ultrasound 02/02/18 21:01 IMPRESSION: Mild fatty infiltration of the liver, otherwise unremarkable. Orbit X-Ray 02/03/18 11:03 IMPRESSION: NO FOREIGN BODY OR FRACTURE OF THE FACIAL BONES. Head CT 02/04/18 00:00 IMPRESSION: No evidence of hemorrhagic conversion of the acute infarcts TECHNICAL DOCUMENTATION: Quality ID # 436: Final reports with documentation of one or more dose reduction techniques (e.g., Automated exposure control, adjustment of the mA and/or kV according to patient size, use of iterative reconstruction technique) 2010 [employer]- All Rights Reserved Carotid Doppler Study 02/06/18 00:00 IMPRESSION: NO HEMODYNAMICALLY SIGNIFICANT STENOSIS. Assessment & Plan - Diagnosis (1) Expressive aphasia Is this a current diagnosis for this admission?: Yes Plan: Improving (2) Acute ischemic stroke and hemorrhagic Is this a current diagnosis for this admission?: Yes Plan: His MRI shows ischemic stroke involving the right insula, the right temporal, parietal lobes, as well as the left parietal lobe. There is subtle increased T1 signal in the right parietal lobe and left parietal lobe along the cortex may indicate early parenchymal hemorrhage. For the above-mentioned reason antiplatelets has not been started. Patient has been started on high intensity Lipitor. (3) Uncontrolled hypertension Is this a current diagnosis for this admission?: Yes Plan: Improving
--- NOTE | 2018-02-06 18:48 | XCELERA REPORT ---
[address] [address] Transthoracic Echocardiogram Report Name: MARK ZUNIGA Age: 62 yrs Gender: Male : 1955 Patient Status: Inpatient Patient Location: [address] [place] [address] Study Date: 02/06/2018 11:19 AM Height: 72 in Weight: 220 lb BSA: 2.2 m2 Procedure: A complete two-dimensional transthoracic echocardiogram was performed (2D, M-mode, spectral and color flow Doppler). The study was technically adequate with some images being suboptimal in quality. Reason For Study: stroke Ordering Physician: VIOLA HSIEH Performed By: Gretchen Valentine Interpretation Summary The left ventricular ejection fraction is normal. There is mild concentric left ventricular hypertrophy. The left ventricle is grossly normal size. Doppler measurements suggest pseudonormalized left ventricular relaxation, which is associated with grade II/IV or mild to moderate diastolic dysfunction Wall motion cannot be accurately commented on, but no definite regional wall motion abnormalities noted. The right ventricular systolic function is normal. The right ventricle is grossly normal size. The right atrium is normal in size The left atrium is mildly dilated. There is no mitral valve stenosis. There is a trace amount of mitral regurgitation No aortic regurgitation is present. There is no aortic valve stenosis There is a trace or physiologic amount of tricuspid regurgitation Tricuspid regurgitation jet envelope not well defined to measure RV systolic pressure accurately. The aortic root is not well visualized but is probably normal size. The inferior vena cava appeared normal and decreased > 50% with respiration (RAP 5-10 mmHg) There is no pericardial effusion. No definite cardiac source of CVA/TIA noted on this particular trans- thoracic study. Consider MINA if clinically indicated. May consider mobile cardiac telemetry monitoring (MCT) for ruling out transient AFIB. MMode/2D Measurements & Calculations RVDd: 2.9 cm LVIDd: 5.4 cm FS: 33.0 % Ao root diam: 3.1 cm IVSd: 1.1 cm LVIDs: 3.6 cm EDV(Teich): 138.3 ml LVPWd: 1.1 cm ESV(Teich): 54.0 ml Ao root area: 7.5 cm2 EF(Teich): 61.0 % LA dimension: 4.3 cm Doppler Measurements & Calculations MV E max teena: MV P1/2t max teena: Ao V2 max: LV V1 max P.3 cm/sec 1.5 cm/sec 93.6 cm/sec 2.9 mmHg MV A max teena: MV P1/2t: 66.5 msec Ao max PG: LV V1 max: 52.3 cm/sec 3.5 mmHg 84.9 cm/sec MV E/A: 1.1 MVA(P1/2t): 3.3 cm2 MV dec slope: 6.5 cm/sec2 MV dec time: 0.30 sec PA V2 max: PI end-d teena: TR max teena: 74.5 cm/sec 104.5 cm/sec 241.6 cm/sec PA max PG: TR max P.2 mmHg 23.4 mmHg Left Ventricle The left ventricle is grossly normal size. There is mild concentric left ventricular hypertrophy. The left ventricular ejection fraction is normal. Doppler measurements suggest pseudonormalized left ventricular relaxation, which is associated with grade II/IV or mild to moderate diastolic dysfunction. Wall motion cannot be accurately commented on, but no definite regional wall motion abnormalities noted. Right Ventricle The right ventricle is grossly normal size. There is normal right ventricular wall thickness. The right ventricular systolic function is normal. Atria The right atrium is normal in size. The left atrium is mildly dilated. Interarterial septum not well visualized and not well dopplered. Cannot comment on ASD/PFO presence. Mitral Valve The mitral valve is grossly normal. There is no mitral valve stenosis. There is a trace amount of mitral regurgitation. Aortic Valve The aortic valve is grossly normal. There is no aortic valve stenosis. No aortic regurgitation is present. Tricuspid Valve The tricuspid valve is not well visualized, but is grossly normal. There is no tricuspid stenosis. There is a trace or physiologic amount of tricuspid regurgitation. Tricuspid regurgitation jet envelope not well defined to measure RV systolic pressure accurately. Pulmonic Valve The pulmonic valve is not well visualized. Great Vessels The aortic root is not well visualized but is probably normal size. The inferior vena cava appeared normal and decreased > 50% with respiration (RAP 5-10 mmHg). Effusions There is no pericardial effusion. Incidental Findings No definite cardiac source of CVA/TIA noted on this particular trans- thoracic study. Consider MINA if clinically indicated. May consider mobile cardiac telemetry monitoring (MCT) for ruling out transient AFIB. : VIOLA HSIEH > Mandi Orta
[2018-02-06] MEDS: ATORVASTATIN CALCIUM 80 MG TABLET PO SCH (21:41)
[2018-02-07] MEDS: ACETAMINOPHEN 325 MG TABLET PO PRN (00:08)
[2018-02-07] MEDS: METOPROLOL TARTRATE 50 MG TABLET PO SCH (09:53)
--- NOTE | 2018-02-07 12:55 | RADIOLOGY REPORT (SQ) ---
EXAM DESCRIPTION: MRI HEAD WITHOUT COMPLETED DATE/TIME: 02/07/2018 12:32 pm REASON FOR STUDY: Stroke COMPARISON: 02/03/2018. TECHNIQUE: Multiplanar imaging includes non-contrasted T1, T2, FLAIR, and diffusion with ADC map seq uences. Images stored on PACS. LIMITATIONS: None. FINDINGS: ANATOMY: No anomalies. Normal vascular flow voids. Pituitary fossa normal. CSF SPACES: Atrophy induced prominence of ventricles and CSF spaces. CEREBRUM: High signal intensity lesions scattered throughout the white matter on FLAIR imaging with d istribution suggesting micro-vascular ischemic changes. Areas of abnormal increased T2 and FLAIR sig nal in the right temporal lobe, posterior parietal lobe, and insular cortex have become more confluen t. A few small areas of increased signal in the peripheral cortex on T1 imaging. POSTERIOR FOSSA: No signal alteration. No hemorrhage. No edema, masses or mass effect. Internal quiana tory canals, cerebello-pontine angles, mastoids normal. DIFFUSION IMAGING: Restricted diffusion in the right temporal and posterior parietal lobe and insular cortex have become more confluent. Again seen is a small focal area of restricted diffusion in the posterior left parietal lobe. ORBITS: No masses. Globes normal. PARANASAL SINUSES: No fluid levels. Mucosa normal. OTHER: No other significant finding. IMPRESSION: ATROPHY AND CHRONIC MICRO-VASCULAR ISCHEMIC CHANGES. THE AREAS OF ACUTE INFARCT IN THE DISTRIBUTION OF THE RIGHT MIDDLE CEREBRAL ARTERY HAVE BECOME MORE CONFLUENT. ALSO AGAIN SEEN IS A SM ALL FOCAL AREA OF ACUTE INFARCT IN THE POSTERIOR LEFT PARIETAL LOBE ON DIFFUSION IMAGING. NO NEW ARE OF INVOLVEMENT. TECHNICAL DOCUMENTATION: JOB ID: [id number] [employer]- All Rights Reserved Reading location - IP/workstation name: [email or web address]
--- NOTE | 2018-02-07 13:33 | PDOC DISCHARGE SUMMARY ---
General - Admit/Disc Date/PCP Admission Date/Primary Care Provider: 02/03/18 02:14 MAEGAN PRADHAN MD Discharge Date: 02/07/18 - Discharge Diagnosis (1) Expressive aphasia Is this a current diagnosis for this admission?: Yes (2) Acute ischemic stroke and hemorrhagic Is this a current diagnosis for this admission?: Yes (3) Uncontrolled hypertension Is this a current diagnosis for this admission?: Yes - Additional Information Discharge Diet: As Tolerated Discharge Activity: Activity As Tolerated Prescriptions: Metoprolol Tartrate [Lopressor 50 mg Tablet] 50 mg PO BIDBS #60 tablet Home Medications: Metoprolol Tartrate [Lopressor 50 mg Tablet] 50 mg PO BIDBS #60 tablet 02/07/18 History of Present Illness History of Present Illness: MARK ZUNIGA is a 62 year old male past medical history of hypertension. Presents to the emergency department complaining of difficulty speaking. Very difficult to obtain history from him. I got the information from the ED attending notes and discussion with him and partially from the patient. She was finishing during the morning and when he got home he was not spitting up normally prompting her to call the ambulance to bring him to the hospital. The emergency department the patient clearly expressive aphasia, no other neurological findings. Patient denies fever, chills, sore throat, shortness of breath, wheezing, chest pain, abdominal pain, diarrhea, dysuria, hematuria or frequency, headaches, weakness of any extremity, numbness in any extremity or tingling, vision changes. Extensive workup in the emergency department negative. Laboratories remarkable for isolated bandemia and transaminitis. Right Upper quadrant ultrasound negative. Lumbar puncture was attempted but failed in the ED. Patient was initiated on IV Acyclovir, cefepime and vancomycin. CT head negative. Chest x-ray and urinalysis negative. Hospital Course Hospital Course: This is a 62 years old black male patient with past medical history significant for hypertension which is untreated due to medical noncompliance, he presents with chief complaint of speaking difficulty. Patient has obviously expressive aphasia. The possibility of meningitis considered LP attempted but failed. And patient empirically started on cefepime, vancomycin and acyclovir. CT scan of the head is negative but his MRI shows acute infarction involving the right insula, right temporal lobe, right parietal lobe as well as the left parietal lobe. So his expressive aphasia is explained by these multiple strokes. Patient does not have any history of A. fib and his EKG is also normal. On the radiology there is a mention of subtle increased T1 signal in the right parietal lobe and left parietal lobe along the cortex may indicate early parenchymal hemorrhage. For this reason patient has not been started on antiplatelet agents. Before discharge I will repeat MRI of the brain if there is no sign of hemorrhage I will put him on antiplatelet. This morning I seen patient while he is participating with physical therapy he walks around 200 m and there is no deficits. We will discharge him with home physical and speech therapy. I repeated his MRI this morning and does not show any area of hemorrhage so patient is a candidate for antiplatelet therapy with aspirin and Plavix. Will send him also with metoprolol 50 mg p.o. twice daily and hydrochlorothiazide 25 mg p.o. daily. Physical Exam Vital Signs: Temp Pulse Resp BP Pulse Ox 98.1 F 73 12 168/73 H 99 02/07/18 07:36 02/07/18 07:36 02/07/18 07:36 02/07/18 07:36 02/07/18 07:36 Intake & Output 02/06/18 02/07/18 02/08/18 06:59 06:59 06:59 Intake Total 1500 555 Output Total 790 275 Balance 710 280 Weight 91.4 kg 90.8 kg General appearance: PRESENT: no acute distress Head exam: PRESENT: atraumatic Eye exam: PRESENT: conjunctiva pink Mouth exam: PRESENT: moist Neck exam: ABSENT: carotid bruit, JVD, lymphadenopathy, thyromegaly Respiratory exam: PRESENT: clear to auscultation heather. ABSENT: rales, rhonchi, wheezes Cardiovascular exam: PRESENT: RRR. ABSENT: diastolic murmur, rubs, systolic murmur GI/Abdominal exam: PRESENT: normal bowel sounds, soft. ABSENT: distended, guarding, mass, organolmegaly, rebound, tenderness Extremities exam: PRESENT: full ROM. ABSENT: calf tenderness, clubbing, pedal edema Neurological exam: PRESENT: alert Results Laboratory Results: 02/04/18 04:29 02/04/18 13:40 02/03/18 02/03/18 03:06 03:06 Creatine Kinase 186 H Troponin I 0.012 Impressions: Chest X-Ray 02/02/18 18:52 IMPRESSION: No acute radiographic finding in the chest. Head MRI 02/02/18 20:37 IMPRESSION: Acute infarction in the right insula, right temporal lobe, right parietal lobe, as well as the left parietal lobe as described. Subtle increased T1 signal in the right parietal lobe and left parietal lobe along the cortex may indicate early parenchymal hemorrhage. No subdural or subarachnoid hemorrhage appreciated at this time. Given the distribution of these infarcts, recommend correlation with any possible embolic or central source. EVIDENCE OF ACUTE STROKE: Yes Abdomen Ultrasound 02/02/18 21:01 IMPRESSION: Mild fatty infiltration of the liver, otherwise unremarkable. Orbit X-Ray 02/03/18 11:03 IMPRESSION: NO FOREIGN BODY OR FRACTURE OF THE FACIAL BONES. Head CT 02/04/18 00:00 IMPRESSION: No evidence of hemorrhagic conversion of the acute infarcts TECHNICAL DOCUMENTATION: Quality ID # [id number]: Final reports with documentation of one or more dose reduction techniques (e.g., Automated exposure control, adjustment of the mA and/or kV according to patient size, use of iterative reconstruction technique) 2010 [employer]- All Rights Reserved Carotid Doppler Study 02/06/18 00:00 IMPRESSION: NO HEMODYNAMICALLY SIGNIFICANT STENOSIS. Qualifiers - * PATIENT BEING DISCHARGED WITH ANY OF THE FOLLOWING DIAGNOSIS: No
[2018-02-07 15:47] VITALS: BP 163/80
== END 2018-02-07 16:33 | disposition home health service (06) | DRG 66 ==
LOC: ER 18:47 → EH 02-03 02:14 → 3N 02-03 14:38
PROVIDERS: ADMIT Internal Medicine; ATTEND Internal Medicine
PROC: 00JU3ZZ Inspection of Spinal Canal, Percutaneous Approach (ICD-10-PCS; principal; 2018-02-03)
DX: I63.9 Cerebral infarction, unspecified (principal); R47.01 Aphasia; I10 Essential (primary) hypertension; Z91.19 Patient's noncompliance with other medical treatment and regimen; D72.825 Bandemia; R74.0 Nonspecific elevation of levels of transaminase and lactic acid dehydrogenase [LDH]; K76.0 Fatty (change of) liver, not elsewhere classified
CPT/HCPCS: 36415; 70200; 70450; 70551; 71045; 76705; 80048; 80053; 80061; 80074; 80076; 80202; 80307; 81001; 82140; 82550; 82553; 82565; 82803; 83605; 83690; 83735; 84484; 85025; 85610; 87040; 87086; 93005; 93010; 93306; 93880; 96365; 96366; 96367; 96375; 99285; G9162-GN; G9163-GN; J0133; J0360; J0692; J1644; J2250; J3370; J3490; J7030